=== PATIENT | female | born 1965 | race Hispanic/Latino ===

== ENCOUNTER 2021-03-11 23:55 | Emergency (ER) | payer SELFPAY ==
[2021-03-12] MEDS ORDERED: ASPIRIN 325 MG TAB PO ONE (01:07)
--- NOTE | 2021-03-12 01:08 | Emergency Department Report ---
ED Chest Pain HPI - General Chief Complaint: Chest Pain Stated Complaint: CHEST PAIN/BRANNON PUI?: No Time Seen by Provider: 03/12/21 01:04 Source: patient Mode of arrival: Stretcher Limitations: No Limitations - History of Present Illness Initial Comments: Patient is a 55-year-old female who presents emergency room plaints of left- sided chest pain. Patient states her chest pain started 2 days ago. Patient states that her chest pain is worsening. Patient states her chest pain is 10 out of 10. Patient states her chest pain is better with rest and worse with movement. Patient states her pain is also worse with palpation. Patient states that shortness of breath. Patient states her shortness of breath better with rest and worse with exertion. Patient denies cough. Patient denies fever and chills. Patient states that last night she went to [facility] and had a full cardiac work-up and was discharged home. Patient states that pain is worsened since going to [place]. Patient denies recent travel. Patient denies recent international travel. Patient denies exposure to the novel coronavirus. Patient denies sick contacts. Patient denies fever and chills. Patient denies cough. Patient denies diarrhea. Patient denies coming in contact with anybody with symptoms of the novel coronavirus. Patient states she is currently on Xarelto for chronic leg DVTs. Patient states has been on Xarelto now for 4 months. Patient states she is compliant with her Xarelto. Complaint: chest pain -: Sudden, days(s) Onset: during rest Pain Location: left chest Pain Radiation: none Severity: severe Severity scale (0 -10): 10 Quality: sharp Consistency: constant Improves With: rest Worsens With: palpation, movement re: dyspnea. denies: nausea, vomting, diaphoresis, sense of impending doom Other Symptoms: denies: cough, fever, syncope, rash, acid taste in mouth, leg swelling, palpitations, burping Treatments Prior to Arrival: aspirin Aspirin use within the Past 7 Days: (1) Yes - Related Data On Oral Contraceptives: No Previous Rx's Medication Instructions Recorded Last Taken Type HYDROcodone/APAP 5-325 [[place] 1 each PO Q4HR PRN #12 tablet 03/12/21 Unknown Rx 5/325] Allergies Allergy/AdvReac Type Severity Reaction Status Date / Time Penicillins Allergy Unknown Verified 03/12/21 01:04 Heart Score - HEART Score History: Slightly suspicious EKG: Normal Age: 45-65 Risk factors: No known risk factors Troponin: < normal limit HEART Score: 1 - EKG Read Time Time EKG Completed: 00:00 EKG Read Time: 00:00 ED Review of Systems ROS: Stated complaint: CHEST PAIN/BRANNON Other details as noted in HPI Constitutional: denies: chills, fever Eyes: denies: eye pain, eye discharge, vision change ENT: denies: ear pain, throat pain Respiratory: see HPI, shortness of breath. denies: cough, wheezing Cardiovascular: as per HPI, chest pain. denies: palpitations Endocrine: no symptoms reported Gastrointestinal: denies: abdominal pain, nausea, diarrhea Genitourinary: denies: urgency, dysuria, discharge Musculoskeletal: denies: back pain, joint swelling, arthralgia Skin: denies: rash, lesions Neurological: denies: headache, weakness, paresthesias Psychiatric: denies: anxiety, depression Hematological/Lymphatic: denies: easy bleeding, easy bruising ED Past Medical Hx - Past Medical History Previous Medical History?: Yes Hx Hypertension: Yes Hx CVA: No Hx Heart Attack/AMI: No Hx Congestive Heart Failure: No Hx Diabetes: No Hx COPD: Yes Additional medical history: DVT on Xarelto. Mitral valve prolapse - Surgical History Past Surgical History?: No - Family History Family history: no significant - Social History Smoking Status: Former Smoker Substance Use Type: None - Medications Home Medications: Home Medications Medication Instructions Recorded Confirmed Last Taken Type HYDROcodone/APAP 5-325 [[place] 1 each PO Q4HR PRN #12 tablet 03/12/21 Unknown Rx 5/325] ED Physical Exam - General Limitations: No Limitations General appearance: alert, in no apparent distress - Head Head exam: Present: atraumatic, normocephalic - Eye Eye exam: Present: normal appearance - ENT ENT exam: Present: mucous membranes moist - Neck Neck exam: Present: normal inspection - Respiratory Respiratory exam: Present: normal lung sounds bilaterally, chest wall tenderness (Palpation of the left chest wall completely reproduces symptoms. Patient has tenderness to palpation of the left chest wall.). Absent: respiratory distress, wheezes, rales - Cardiovascular Cardiovascular Exam: Present: regular rate, normal rhythm. Absent: systolic murmur, diastolic murmur, rubs, gallop - GI/Abdominal GI/Abdominal exam: Present: soft, normal bowel sounds. Absent: distended, tenderness, guarding - Extremities Exam Extremities exam: Present: normal inspection - Back Exam Back exam: Present: normal inspection - Neurological Exam Neurological exam: Present: alert, oriented X3 - Psychiatric Psychiatric exam: Present: normal affect, normal mood - Skin Skin exam: Present: warm, dry, intact, normal color. Absent: rash ED Course Vital Signs 03/12/21 03/12/21 01:09 01:15 Temperature 98.6 F Pulse Rate 90 Respiratory 20 Rate Blood Pressure 130/88 O2 Sat by Pulse 100 100 Oximetry - Reevaluation(s) Reevaluation #1: I discussed all results and clinical findings with patient. I discussed plan of care with patient. Patient agrees with plan of care. Patient is stable for discharge. Patient will be discharged home. Patient given discharge instructions. Patient voiced understanding of discharge instructions. 03/12/21 03:01 JASON score - Jason Score Age > 65: (0) No Aspirin use within the Past 7 Days: (1) Yes 3 or more CAD Risk Factors: (0) No 2 or more Angina events in past 24 hrs: (0) No Known CAD with more than 50% Stenosis: (0) No Elevated Cardiac Markers: (0) No ST Deviation Greater than 0.5mm: (0) No JASON Score: 1 ED Medical Decision Making - Lab Data Result diagrams: 03/12/21 01:20 03/12/21 01:20 - EKG Data -: EKG Interpreted by Me EKG shows normal: sinus rhythm, axis, intervals, QRS complexes, ST-T waves Rate: normal - Radiology Data Radiology results: report reviewed, image reviewed interpreted by me: Chest x-ray: No pneumonia, no pneumothorax, no foreign body, no osseous findings, no acute findings XR chest 1V ap INDICATION / CLINICAL INFORMATION: Chest Pain. COMPARISON: None available. FINDINGS: SUPPORT DEVICES: None. HEART /PULMONARY VASCULATURE: No significant abnormality. LUNGS / PLEURA: No significant pulmonary or pleural abnormality. No pneumothorax. ADDITIONAL FINDINGS: No significant additional findings. IMPRESSION: 1. No acute findings. - Medical Decision Making Patient is a 55-year-old female presents emergency room with complaints of chest pain shortness of breath. Patient's chest pain is reproducible on palpation. Patient had a complete cardiac work-up done yesterday at [facility] and her troponin was negative and her cardiac troponin was negative per patient. Patient had labs done here and the labs were essentially unremarkable. P atient's troponin was negative. Patient had a chest x-ray was negative for acute findings. Patient had an EKG which was negative for acute findings showed normal ST segment. I personally reviewed the EKG and chest x-ray. Patient does not require further emergency medical services. Patient does not require inpatient service. Patient is stable for discharge. Patient discharged home. I discussed all results and clinical findings with patient. I discussed plan of care with patient. Patient agrees with plan of care. Patient is stable for discharge. Patient will be discharged home. Patient given discharge instructions. Patient voiced understanding of discharge instructions. Since the patient presents emergency with complaint of chest pain, the patient information was faxed over to her local cardiology group for further evaluation and treatment of her chest pain as well as risk stratification of the chest pain. Patient's chest pain is low risk and can be worked up as an outpatient. - Differential Diagnosis Chest pain, chest wall pain, anxiety, pneumonia Critical care attestation.: If time is entered above; I have spent that time in minutes in the direct care of this critically ill patient, excluding procedure time. ED Disposition Clinical Impression: Chest wall pain Chest pain Qualifiers: Chest pain type: unspecified Qualified Code(s): R07.9 - Chest pain, unspecified Disposition: 01 HOME / SELF CARE / HOMELESS Is pt being admited?: No Does the pt Need Aspirin: No Condition: Stable Instructions: Nonspecific Chest Pain, Adult, Chest Wall Pain, [id number] Additional Instructions: Patient to follow-up with primary care in 2 to 3 days. Patient to follow-up with bogger operator and orthopedist in 2 to 3 days. Patient to rest. Patient to increase water. Patient to avoid strenuous exercise or heavy lifting until cleared by cardiology and orthopedics. Patient to take Tylenol as needed for pain. Patient to take meds as directed. Patient to return to the ER if condition worsens, changes or new symptoms arise. Prescriptions: HYDROcodone/APAP 5-325 [[place] 5/325] 1 each PO Q4HR PRN #12 tablet PRN Reason: Pain Referrals: RODRIGUE LEBLANC MD [Staff Physician] - 2-3 Days AMARJIT MILTON MD [Staff Physician] - 2-3 Days DONG JIN MD [Staff Physician] - 2-3 Days Time of Disposition: 03:02
--- NOTE | 2021-03-12 01:29 | XRay Report ---
XR chest 1V ap INDICATION / CLINICAL INFORMATION: Chest Pain. COMPARISON: None available. FINDINGS: SUPPORT DEVICES: None. HEART /PULMONARY VASCULATURE: No significant abnormality. LUNGS / PLEURA: No significant pulmonary or pleural abnormality. No pneumothorax. ADDITIONAL FINDINGS: No significant additional findings. IMPRESSION: 1. No acute findings. Signer Name: Clay Cruz MD Signed: 03/12/2021 1:25 AM Workstation Name: [id number]
[2021-03-12 01:34] LABS: Basophils % (Auto) 0.2 % (0.0-1.8); Eosinophils % (Auto) 0.1 % (0.0-4.3); Hematocrit 36.7 % (30.3-42.9); Hemoglobin 12.5 gm/dl (10.1-14.3); Lymphocytes # (Auto) 1.8 K/mm3 (1.2-5.4); Lymphocytes % (Auto) 13.7 % (13.4-35.0); Mean Corpuscular HGB Conc 34 % (30-34); Mean Corpuscular Volume 93 fl (79-97); Monocytes # (Auto) 0.7 K/mm3 (0.0-0.8); Monocytes % (Auto) 5.6 % (0.0-7.3); Platelet Count 394 K/mm3 (140-440); Red Blood Count 3.97 M/mm3 (3.65-5.03)
[2021-03-12 02:01] LABS: Alanine Aminotransferase 30 units/L (7-56); Albumin 4.3 g/dL (3.9-5); Blood Urea Nitrogen 13 mg/dL (7-17); Calcium 9.2 mg/dL (8.4-10.2); Hemolysis Index 37
[2021-03-12 02:10] LABS: BUN/Creatinine Ratio 22
[2021-03-12 03:11] LABS: Amphetamine Screen,Urine PRESUMPTIVE NEGATIVE; Benzodiazepines Screen,Urine PRESUMPTIVE NEGATIVE; Cannabinoid Screen,Urine PRESUMPTIVE NEGATIVE; Cocaine Screen,Urine PRESUMPTIVE NEGATIVE; Methadone Screen,Urine PRESUMPTIVE NEGATIVE; Opiate Screen,Urine PRESUMPTIVE NEGATIVE
[2021-03-12] MEDS ORDERED: HYDROcodone/ACETAMINOPHEN 5-325 MG TAB PO ONE (03:46)
[2021-03-12 04:43] VITALS: BP 122/80
--- NOTE | 2021-03-12 14:51 | Electrocardiograph Report ---
[facility] Test Date: 2021-03-12 Test Time: 02:55:56 Pat Name: SONAL WALLS Department: Room: Gender: F [employer]: BRICE : 1965 Requested By: PEBBLES QUINONES III Order Number: [id number] Reading MD: Des Hardy Measurements Intervals [place] Rate: 96 P: 69 PA: 178 QRS: -48 QRSD: 110 T: 69 QT: 370 QTc: 463 Interpretive Statements Sinus rhythm Atrial premature complexes Incomplete RBBB and LAFB No previous ECG available for comparison Electronically Signed On 03-12-2021 14:50:53 EDT by Des Hardy
== END 2021-03-12 04:44 | disposition home or self-care (01) ==
LOC: ED 23:55
DX: R07.89 Other chest pain (principal); I10 Essential (primary) hypertension; J44.9 Chronic obstructive pulmonary disease, unspecified; R06.02 Shortness of breath
CPT/HCPCS: 36415; 71045; 80053; 80307; 84484; 85025; 93005; 99284